=== PATIENT | female | born 1980 | race Hispanic/Latino ===

== ENCOUNTER → 2023-09-21 15:00 | Outpatient (REF) | payer OTHER, SELFPAY | LOC: DHCBS MAIN 15:00 | PROVIDERS: ATTENDING PHYSICIAN Internal Medicine Cardiovascular Disease | DX: R06.02 Shortness of breath (principal); R07.89 Other chest pain | CPT/HCPCS: 93306 ==

== ENCOUNTER 2024-12-19 17:56 | Emergency (ER) | payer OTHER, SELFPAY ==
[2024-12-19 18:18] VITALS: BP 135/82
[2024-12-19 19:32] VITALS: BP 142/75; BMI 23.0
[2024-12-19] MEDS: DECADRON 10 MG PO (19:36)
[2024-12-19 20:00] VITALS: BP 132/76
[2024-12-19 21:00] VITALS: BP 117/70
--- NOTE | 2024-12-19 23:57 | ED.GENMED ---
History of Present Illness
General
Chief Complaint: Allergic Reaction
Source: patient
Exam Limitations: none
Time Seen by Provider: 12/19/24 19:16
Nursing documentation reviewed up to this point in time: agreed with
History of Present Illness
History of Present Illness:
Patient states she developed swelling and tingling to her lips, felt swelling of her tongue, lump in throat today while cutting large amt of onion. States she has had issues wtih diarrhea when eating onions but has never had synptoms present today.
She took a dose of loratidine and came to ED. Pulse ox 100% RA on arrival,
Past History
Past History
ED Past Medical History: Asthma and Other (endometriosis)
ED Past Surgical History: (X 2)
Social History
Tobacco: Non-smoker
Alcohol: Occasional
Personal:
Living: with family
Review of Systems
Review of Systems
Allergies reviewed?: Yes
All Other Systems: ROS reviewed and negative except as documented in HPI and ROS
Constitutional: Reports no symptoms
EENT: Reports other (swelling and tingling to lips, sensation of swelling to tongue, lump in throat)
Respiratory: Reports no symptoms
Cardiac: Reports no symptoms
ABD/GI: Reports no symptoms
: Reports no symptoms
Musculoskeletal: Reports no symptoms
Skin: Reports no symptoms
Neurological: Reports no symptoms
Psychiatric: Reports no symptoms
Phy Exam
General Physical Exam
General Presentation: well appearing and no apparent distress
General age: appears stated age
General Skin: warm and dry
General Habitus: normal
ENT Exam
ENT Exam: swallowing well
Cardiovascular Exam
Cardiovascular Exam: regular rate/rhythm
Pulmonary Exam
Pulmonary Exam: lungs clear and no respiratory distress
Gastrointestinal Exam
Gastrointestinal Exam: normal bowel sounds, non tender and soft
Musculoskeletal Exam
Musculoskeletal Exam: full ROM and neuro vasc intact
Skin Exam
Skin Exam: normal color, warm/dry and no rash
Psychiatric Exam
Psychiatric Exam: normal mood/affect
Course
Orders/Labs/Results
Orders:
Orders
12/19/24 19:21
Dexamethasone Pf [Decadron] 10 mg PO NOW STA
Vital Signs
Initial and Last Documented VS:
Initial Vital Signs
Temp Pulse Resp BP Pulse Ox
98.3 F 74 16 135/82 100
12/19/24 18:18 12/19/24 18:18 12/19/24 18:18 12/19/24 18:18 12/19/24 18:18
Last Documented Vital Signs
Temp Pulse Resp BP Pulse Ox
98.3 F 63 10 117/70 100
12/19/24 18:18 12/19/24 21:00 12/19/24 21:00 12/19/24 21:00 12/19/24 21:00
*Pulse Oximetry
SaO2: 100
Oxygen Mode of Delivery: Room air
Patient hypoxic: no
*Critical Care Note
Total Time (30-74mins, 75-104mins- exclusive of procedures): Not Applicable
Update Note
Update Note:
VSS on arrival. Given dose of decadron on arrival to ED with improvement in her symptoms. SHe will continue loratidine daily. Given rx for 3 additional doses of prednisone. She is discharge home. VS remain stable. No diustress noted. Given
instructons on s/s to return to ED and she is agreable to plan.
ED Attending Note
-
Portions of this chart may have been created with voice recognition software.� Occasional wrong word or��sound alike� substitutions may have occurred due to the inherent limitations of voice recognition software.
Discharge Plan
Departure
Patient Disposition: Home (Routine Discharge)
Date of Disposition: 12/19/24
Time of Disposition: 20:52
Patient with high blood pressure during this ER visit?: No
Condition: Good
Covid-19: Not Applicable
Discharge Problem:
Allergic reaction
Instructions: Allergic reaction - ED discharge instructions
Prescriptions:
New
prednisone 20 mg tablet
40 mg PO DAILY Qty: 6 0RF
Referrals:
Madelaine Pisano NP [Family Provider, Internal Medicine]
Activity Restrictions/Additional Instructions:
Return to the emergency department immediately for any changes in/worsening of your symtpoms.
Interventions
Interventions:
*Risk Screen - Suicide Last Done: 12/19/24 19:32
*General Assessment Last Done: 12/19/24 19:32
*Neglect/Abuse Screening Last Done: 12/19/24 19:32
*ED- Fall Risk Assessment Last Done: 12/19/24 19:32
*ED COVID-19 Vaccine History Last Done: 12/19/24 18:18
*Nursing Disposition Last Done: 12/19/24 21:17
ED- Cardiac Assessment Last Done: 12/19/24 19:32
ED- Pulmonary Assessment Last Done: 12/19/24 19:32
ED-Skin Assessment Last Done: 12/19/24 19:25
Discharge Date and Time
Discharge Date/Time: 12/19/24 21:18
Print Language: SENEGALESE
== END 2024-12-19 21:18 | disposition home or self-care (01) ==
LOC: EMR 17:56
PROVIDERS: EMERGENCY PHYSICIAN Emergency Medicine; FAMILY PHYSICIAN Nurse Practitioner Family
DX: T78.40XA Allergy, unspecified, initial encounter (principal); X58.XXXA Exposure to other specified factors, initial encounter; J45.909 Unspecified asthma, uncomplicated
CPT/HCPCS: 99283

== ENCOUNTER → 2025-05-06 08:03 | Outpatient (REF) | payer OTHER, SELFPAY | LOC: RAD 08:03 | PROVIDERS: ATTENDING PHYSICIAN Obstetrics & Gynecology; FAMILY PHYSICIAN Nurse Practitioner Family | DX: R10.20 Pelvic and perineal pain unspecified side (principal) | CPT/HCPCS: 76830; 76856 ==